=== PATIENT | male | born 1945 | race Caucasian/White ===

== ENCOUNTER 2017-06-24 20:08 | Emergency (ER) | payer MEDICARE, OTHER ==
[2017-06-24 20:17] VITALS: TEMP 97.9; O2SAT 98
[2017-06-24] MEDS ORDERED: Lidocaine 1% Inj (20ml) INFIL ONE (20:28)
--- NOTE | 2017-06-24 20:31 | C.PDOC ---
History Of Present Illness 72 y/o male presents with laceration to scalp; pt was working in basement, lifted his head up and hit his head on a pipe. pt denies loc, denies neck pain. denies headache and dizziness, no visual changes. Time Seen by Provider: 06/24/17 20:22 Chief Complaint (Nursing): Abnormal Skin Integrity History Per: Patient History/Exam Limitations: no limitations Onset/Duration Of Symptoms: Hrs (1) Current Symptoms Are (Timing): Still Present Location Of Injury: Posterior: Head Quality Of Symptoms: Painful Past Medical History Reviewed: Historical Data, Nursing Documentation, Vital Signs Vital Signs: Last Vital Signs Temp 97.9 F 06/24/17 20:14 Pulse 81 06/24/17 21:00 Resp 16 06/24/17 21:00 BP 121/81 06/24/17 21:00 Pulse Ox 98 06/25/17 21:43 - Medical History PMH: Arthritis, HTN, Hypercholesterolemia, Kidney Stones, Chronic Kidney Disease , TIA Surgical History: Endoscopy - [facility] Procedures ESOPHAGOGASTRODUODENOSCOPY [EGD] W/CLOSED BIOPSY (05/29/14) Family History: States: Unknown Family Hx - Social History Hx Tobacco Use: No Hx Alcohol Use: No Hx Substance Use: No - Immunization History Hx Tetanus Toxoid Vaccination: No Hx Influenza Vaccination: No Hx Pneumococcal Vaccination: No Review Of Systems Constitutional: Negative for: Fever, Chills Eyes: Negative for: Vision Change ENT: Negative for: Ear Pain Skin: Positive for: Other (laceration) Neurological: Negative for: Weakness, Numbness, Altered Mental Status, Headache , Dizziness Physical Exam - Physical Exam Appears: Non-toxic, No Acute Distress Skin: Warm, Dry Head: Normacephalic, Laceration (apprx 2 cm laceration to top of scalp, no active bleeding. ) Eye(s): bilateral: Normal Inspection, PERRL, EOMI Ear(s): Bilateral: Normal (no hemotympanum) Neck: Normal ROM, No Midline Cervical Tenderness ED Course And Treatment O2 Sat by Pulse Oximetry: 98 Laceration - Laceration Repair Scalp Wound Length (In cm): 2 Description Of Wound: Linear Wound Cleansed With: Sterile Saline Anesthesia: Lidocaine 2% Wound Examination: Irrigated With Saline Wound Closure: [place] (x5) Wound Complexity: Simple Medical Decision Making Medical Decision Making: Tdap booster recommended and discussed with patient; he declines Tdap and states he will discuss it with his PMD on Tuesday. Addendum: 06/25/17 940 pm. pt and daughter in law returned to ED today requesting antibiotics for scalp laceration sustained yesterday that was repaired with [place]. wound appears well with no sign of infection pt and family member adamantly insist on antibiotic rx though I have explained that scalp wounds rarely become infected and potential side effects of antibiotics. Disposition Counseled Patient/Family Regarding: Diagnosis, Need For Followup - Disposition Referrals: Dick Salas MD [Medical Doctor] - Disposition: HOME/ ROUTINE Disposition Time: 20:54 Condition: IMPROVED Additional Instructions: Keep wound clean and dry; Staple removal in 10- days. Follow up with your doctor inn a few days. Return to ER for any headache, nausea. vomiting, any other concerning symptoms. Take Tylenol for pain if needed. Prescriptions: Cephalexin [cephalexin] 500 mg PO TID #15 cap Instructions: Laceration (ED), Head Injury (ED), Staple Care (ED) Forms: [facility] ([place]), General Discharge Instructions - Clinical Impression Clinical Impression: Scalp laceration, Closed head injury
[2017-06-24] MEDS ORDERED: Lidocaine 2% Inj (20ml) ONE (20:33)
[2017-06-24] MEDS ORDERED: Lidocaine 2% Inj (20ml) INFIL ONE (20:34)
[2017-06-24 21:01] VITALS: BP 121/81; PULSE 81; RESP 16
== END 2017-06-24 21:22 | disposition home or self-care (01) ==
LOC: C.ER 20:08
DX: S01.01XA Laceration without foreign body of scalp, initial encounter (principal); W22.8XXA Striking against or struck by other objects, initial encounter; Y92.89 Other specified places as the place of occurrence of the external cause

== ENCOUNTER 2018-12-01 09:49 | Outpatient (CLI) | payer OTHER | END 2018-12-01 09:50 | disposition home or self-care (01) | LOC: C.USIC 09:50 ==

== ENCOUNTER 2019-01-15 08:26 | Outpatient (CLI) | payer OTHER | END 2019-01-15 08:27 | disposition home or self-care (01) | LOC: C.USIC 08:26 ==